=== PATIENT | male | born 1990 | race African-American/Black ===

== ENCOUNTER 2018-07-31 22:43 | Emergency (ER) | payer OTHER, SELFPAY ==
[~2018-07-31] VITALS: Ht 190.5 cm; Wt 122.5 kg
[~2018-07-31 22:43] MED LIST: IBUPROFEN800 MG ORAL; NKM; TRAMADOL HCL50 MG ORAL
[2018-07-31 23:15] VITALS: BP 127/84
[2018-07-31] MEDS ORDERED: Norco 5mg/325mg tab PO ONE (23:30)
[2018-07-31] MEDS ORDERED: Methocarbamol 750mg tab ORAL ONE (23:30)
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
[2018-08-01 01:20] VITALS: BP 128/79
[2018-08-01] MEDS ORDERED: NORCO 5-325 TA1 EACH ORAL (01:36)
[2018-08-01] MEDS ORDERED: ALBUTEROL SULF8.5 GM INH (01:36)
[2018-08-01] MEDS ORDERED: IBUPROFEN600 MG ORAL (01:36)
[2018-08-01] MEDS ORDERED: HYDROCORTISONE30 G2 TP (01:36)
[2018-08-01] MEDS ORDERED: ROBAXIN-750750 MG PO (01:36)
[2018-08-01 01:42] VITALS: BP 127/84
--- NOTE | 2018-08-01 09:42 | Diagnostic Imaging Report ---
Indication: Neck pain. Technique: Continuous helical imaging of the cervical spine was obtained transaxially from the skull base to the upper thoracic spine. 2-D coronal and sagittal reformatted images were obtained. Automatic Exposure Control was utilized. Total Dose length Product (DLP): 571.[address] Dose Index Volume (CTDIvol): 27.41 mGy Comparison: None Findings: There is no evidence of an acute fracture or malalignment. Atlantoaxial alignment appears normal. Height and configuration of the vertebral bodies and intervertebral discs are within normal limits. Uncovertebral joints and facets are unremarkable. There is no soft tissue swelling. Impression: Negative cervical spine CT The CT scanner at [facility] is accredited by the [employer] and the scans are performed using dose optimization techniques as appropriate to a performed exam including Automatic Exposure control.
--- NOTE | 2018-08-01 09:44 | Diagnostic Imaging Report ---
Indication: Back pain Technique: Continuous helical transaxial imaging of the lumbar spine was obtained from the lung bases to the pubic symphysis. No IV contrast was administered. Coronal 2-D reformats were also obtained. Study obtained in a Siemens sensation [address] Total Dose length Product (DLP): 1018.[address] Dose Index Volume (CTDIvol): 26.61 mGy Comparison: None Findings: There is no evidence of an acute fracture or malalignment. Height and configuration of the vertebral bodies and intervertebral discs are within normal limits. The facets are unremarkable. There is no soft tissue swelling. Bilateral pars interarticularis defects demonstrated at L5. Alignment is normal and well-maintained. Impression: No acute injury. Spondylolysis L5 The CT scanner at [facility] is accredited by the [employer] and the scans are performed using dose optimization techniques as appropriate to a performed exam including Automatic Exposure control.
--- NOTE | 2018-08-01 09:45 | Diagnostic Imaging Report ---
Indication: Headache Technique: Contiguous 5 mm thick transaxial imaging of the head obtained in a Siemens Sensation [address] scanner. Soft tissue and bone windows generated. Automatic Exposure Control was utilized. Total Dose length Product (DLP): 1361.[address] Dose Index Volume (CTDIvol): 70.38 mGy Comparison: none Findings: The size and configuration of the cortical sulci, basal cisterns, and ventricles are within normal limits for age. There is no mass effect, midline shift, or edema identified. There is no evidence of acute hemorrhage or abnormal intra-axial or extra-axial fluid collections. The bones and soft tissues are unremarkable. Impression: No mass effect, edema or acute bleed. [facility] has communicated the preliminary results to the Emergency Department. Their findings are largely concordant with this report. The CT scanner at [facility] is accredited by the [employer] and the scans are performed using dose optimization techniques as appropriate to a performed exam including Automatic Exposure control.
--- NOTE | 2018-08-01 10:12 | Diagnostic Imaging Report ---
Indication: Knee Pain 3 views of the left knee were obtained. Findings: No acute fracture, malalignment, or joint effusion are identified. Joint space is relatively well-maintained. Impression: Negative for acute injury
== END 2018-08-01 01:40 | disposition home or self-care (01) ==
LOC: EMR 23:12
DX: S09.90XA Unspecified injury of head, initial encounter (principal); S39.012A Strain of muscle, fascia and tendon of lower back, initial encounter; V43.52XA Car driver injured in collision with other type car in traffic accident, initial encounter; Y92.410 Unspecified street and highway as the place of occurrence of the external cause
CPT/HCPCS: 70450; 72125; 72131; 99284